=== PATIENT | female | born 1935 | race Caucasian/White ===

== ENCOUNTER → 2016-09-30 | Outpatient (CLI) | payer MEDICARE ==
[~2016-09-30] MED LIST: /CELE20CA OR; /CELE20CA PO; /FEXO18TA OR; /FEXO60TA; /ZOLP6ER; /ZOLP6ER OR; ADV250INH INH; ALBU17IN2 INH; AMBI5TAB PO; AMIT25TA2; AMOX500C OR; ANTIBIOTIC CREAM EXT; ARIM1TAB4 PO; ASCO25TA PO; ASPI81TA2 PO; ATEN100T; ATEN100T OR; BACT400T; BACT400T OR; BONI150T PO; BONIVA; BONIVA OR; BOSWPOW XX; CAFERGOT OR; CALC25TA PO; CALC600T9 PO; CETI10TA PO; CO Q10CA PO; CODE30SO OR; CODE30TA OR; CODE30TA3 PO; CRAN250C2 PO; DICL13PA TD; ESTR3TA; EXCETAB80 PO; FERR325T3 PO; FLECTOR1.3 EXT; FLEXERIL; FURO20TA2 PO; IBUPPOW25 PO; KEFLEX PO; LIDO5DIS EXT; MAGN250T2 PO; MORP-38 PO; MORPHINE IR PO; MS CONTIN PO; MULTLIQ7 PO; NITR3TA SL; NITR4TASL SL; OMEP40CA2 PO; PHEN 25 OR; PRIL20CA9 PO; PROAAER INH; PROV90AE; SERT100T OR; SING10TA31 OR; SKEL800T5; SKEL800T5 OR; SOMA350T; SOMA350T OR; SYNT150T OR; TRAM50TA2; TRAM50TA2 OR; TYLENOL #3 OR; VENTAER IN; VITA200C10 PO; VITAD1000T PO; VITAMIN D50000 UNT OR; VITATAB38 PO; VITATAB73 PO; ZOLO50TA; [UNRECOGNIZED DRUG - CODE] OR; [UNRECOGNIZED DRUG - OTHER] PO; boswellia PO; cytomel OR; tumeric PO
--- NOTE | 2016-10-10 23:34 | ECWPNPC ---
PATIENT NAME: JOCELYNN LEYVA : 1935 GENDER: FEMALE VISIT DATE: 09/30/2016 DISCHARGE DATE: 09/30/16 1545 VISIT LOCKED DATE TIME: PHYSICIAN: PARAMJIT ZAMORA RESOURCE: PARAMJIT ZAMORA HISTORY OF PRESENT ILLNESS HISTORY OF PRESENT ILLNESS: PAIN THE PATIENT DESCRIBES THE PAIN... THE PATIENT DESCRIBES THE PAIN... THE PATIENT DESCRIBES THE PAIN... THE PATIENT DESCRIBES THE PAIN... THE PATIENT DESCRIBES THE PAIN... CONTINUES W CHRONIC LBP DESCRIBED INTERMITTENT ACHING AND TENDER WITH PAIN VAS 5/10. DCS BATTERY NEEDS ADJUSTING. CURRENT MEDICINE: MS CONTIN 15MG TID , CELEBREX 200MG DAILY AND TYLENOL W CODEINE Q8H PRN.REPORTS MEDICATION IS HELPFUL AT REDUCING DAILY PAIN AND DENIES SIDE EFFECTS.STILL NEEDS TO TALK WITH Assignment Editor IN REGARDS TO DCS.CURRENTLY NOT USING [facility].SHE WILL BE MOVING TO [place] AT END OF THIS MONTH. FALL RISK SCREENING: SCREENING :NO FALLS IN THE PAST YEAR :NO FALLS IN THE PAST YEAR SCREENING :NO FALLS IN THE PAST YEAR :NO FALLS IN THE PAST YEAR CURRENT MEDICATIONS TAKING ZYRTEC 10 MG TABLET 1 TABLET NEEDED ORALLY ONCE A DAY TAKING NITROGLYCERIN 0.4 MG TABLET SUBLINGUAL SUBLINGUAL TAKING IRON SUPPLEMENT 325 (65 FE) MG TABLET 1 TABLET ORALLY BID TAKING SYNTHROID 175 MCG TABLET 1 TABLET EVERY MORNING ON AN EMPTY STOMACH ORALLY ONCE A DAY TAKING ATENOLOL 100 MG TABLET 1 TAB(S) ORALLY ONCE A DAY TAKING CYTOMEL 5 MCG TABLET 1 TABLET ORALLY ONCE A DAY TAKING ASPIR-81 81 MG TABLET DELAYED RELEASE 1 TABLET ORALLY ONCE A DAY TAKING OMEPRAZOLE 20MG 40 MG TABLET DIRECTED ORAL QD TAKING SERTRALINE HCL 100 MG TABLET 1 TABLET ORALLY TWICE A DAY TAKING ALEVE 220 MG TABLET 1 TABLET NEEDED ORALLY EVERY 12 HRS TAKING PROAIR HFA 108 (90 BASE) MCG/ACT AEROSOL SOLUTION 2 PUFFS NEEDED INHALATION EVERY 4 HRS TAKING DUONEB 0.5-2.5 (3) MG/3ML SOLUTION 3 ML INHALATION EVERY 4 HOURS NEEDED TAKING MULTIVITAL TABLET DIRECTED ORALLY DAILY TAKING VITAMIN C 500 MG TABLET CHEWABLE 1 TABLET ORALLY DAILY TAKING CALCIUM 600-200 MG-UNIT TABLET 1 TABLET WITH MEALS ORALLY ONCE A DAY TAKING TYLENOL WITH CODEINE #3 300-30 MG TABLET 1 TABLET NEEDED ORALLY EVERY 6 HRSMDD4, NOTES: 09/29/16 TAKING MORPHINE SULFATE ER 15 MG TABLET EXTENDED RELEASE 1 TABLET ORALLY Q8H PRN MDD3, NOTES: 09/29/16 NOT-TAKING BONIVA 150 MG TABLET 1 TABLET ORALLY NOT-TAKING AMBIEN 5 MG TABLET 1 TABLET AT BEDTIME ORALLY ONCE A DAY NEEDED NOT-TAKING ADVAIR DISKUS 250-50 MCG/DOSE AEROSOL POWDER BREATH ACTIVATED 1 PUFF INHALATION TWICE A DAY MEDICATION LIST REVIEWED AND RECONCILED WITH THE PATIENT PAST MEDICAL HISTORY HTN CHRONIC BACK PAIN POSTLAMINECTOMY SYNDROME SEES PAIN CLINIC AT [facility] ALLERGIES DEPRESSION OSTEOPOROSIS HX OF BCC ANEMIA WORKUP THE ENDOSCOPY AND COLONOSCOPY DONE ON 10/19/12 SHOWED DIVERTICULOSIS AND CHRONIC DUODENITIS ATROPHIC GASTRITIS ULCERATED GASTRIC POLYP ALLERGIES PROCARDIA: THROAT CLOSES: ALLERGY GABAPENTIN: HEADACHES: SIDE EFFECTS NITROFURANTOIN: NEUROPATHY: ALLERGY BACTRIM DS: DECREASED KIDNEY FUNCTION: ALLERGY LYRICA: HEADACHE: SIDE EFFECTS LATEX (FOR ALLERGY USE ONLY): RASH: ALLERGY REVIEW OF SYSTEMS CONSTITUTIONAL: ANY CHANGE IN YOUR MEDICAL CONDITION? NO . CHILLS NO . FEVER NO . INFECTION: DO YOU HAVE NEW INFECTIONS? NO . DO YOU HAVE HISTORY OF MRSA? NO . MUSCULOSKELETAL: ANY NEW PATTERNS OF PAIN OR NUMBNESS? NO . GASTROENTEROLOGY: ANY NEW CHANGE IN BOWEL CONTROL? NO . GENITOURINARY: ANY NEW CHANGE IN BLADDER CONTROL? NO . IS THERE A CHANCE YOU COULD BE ? NO . HEMATOLOGY/LYMPH: DO YOU TAKE ANY BLOOD THINNERS? (FOR EXAMPLE- COUMADIN, PLAVIX, AGGRENOX, PLATEL, PRADAXA, OR XARELTO) NO . WHEN WAS YOUR LAST DOSE? DATE: TIME: . NEUROLOGY: HAVE YOU FALLEN IN THE PAST 6 MONTHS? NO . ANY NEW EXTREMITY NUMBNESS OR WEAKNESS? NO . CARDIOLOGY: DO YOU HAVE A PACEMAKER OR DEFIBRILLATOR? NO . RESPIRATORY: HAVE YOU BEEN SICK IN THE PAST WEEK? NO . FEVER NO . FLU LIKE SYMPTOMS? NO . COUGH NO . INTEGUMENTARY: DO YOU HAVE ANY RASHES OR OPEN SORES? NO . ALLERGIC/IMMUNO: ARE YOU ALLERGIC TO SHELLFISH OR IV DYE? NO . ANY NEW ALLERGIES? NO . PSYCHIATRIC: DO YOU HAVE THOUGHTS OF HURTING YOURSELF OR SOMEONE ELSE? NO . ARE YOU ABUSED, NEGLECTED, OR IN AN UNSAFE ENVIRONMENT? NO . ENDOCRINOLOGY: ARE YOU DIABETIC? NO . OTHER: DO YOU NEED ANY PRESCRIPTIONS? YES . IF YES, PLEASE LIST: TYLENOL/CODEINE AND MORPHINE . ANY NEW PROBLEMS WITH YOUR MEDICATIONS? NO . WHEN DID YOU LAST EAT? ____ . WHEN DID YOU LAST DRINK? ____ . WHAT DID YOU LAST DRINK? ____ . NAME OF PERSON DRIVING YOU HOME? ____ . DO YOU HAVE ANY OTHER QUESTIONS OR CONCERNS NO . REVIEWED BY: PROVIDER: PARAMJIT MILLER . VITAL SIGNS WT 208 LBS, HT 64.5 IN, BMI 35.15 INDEX, BP 149/70 MM HG, HR 72 /MIN, RR 16 /MIN, TEMP 98.0 F, OXYGEN SAT % 93, NA INITIALS AW 1504, REVIEWED BY: CS. EXAMINATION GENERAL EXAMINATION: LUNGS:LUNG SOUNDS ARE CLEAR. HEART:HEART RATE REGULAR. MUSCULOSKELETAL:*, MUSCLE STRENGTH TESTING 5/5 BILATERAL, PALPATION: POSITIVE FOR PAIN OVER L/S SPINE. POSITIVE FOR PAIN OVER L/S PARSPINALS. ASSESSMENTS POST LAMINECTOMY SYNDROME - M96.1 (PRIMARY) CHRONIC PRESCRIPTION OPIATE USE - Z79.891 TREATMENT POST LAMINECTOMY SYNDROME DECREASE MORPHINE SULFATE ER TABLET EXTENDED RELEASE, 15 MG, 1 TABLET, ORALLY, BID MDD2 THREE MOS. SUPPLY CAT D CHRONIC PAIN, 90 DAYS, 180, REFILLS 0, NOTES: 09/29/16 REFILL TYLENOL WITH CODEINE #3 TABLET, 300-30 MG, 1 TABLET NEEDED, ORALLY, EVERY 6 HRSMDD4 3MOS SUPPLY CAT D CHRONIC PAIN, 90 DAYS, 360, REFILLS 0, NOTES: 09/29/16 PROCEDURE CODES FA211 ESTABILISHED PATIENT [facility] CHARGE G8730 PAIN ASSESS POS TOOL F/U PLAN DOC G8427 DOC MEDS VERIFIED W/PT OR RE DISPOSITION & COMMUNICATION FOLLOW UP PT MOVING ELECTRONICALLY SIGNED BY PAUL LANDEROS ON 10/10/2016 AT 05:39 PM EDT DISCLAIMER : THIS IS A VISIT SUMMARY EXTRACTED FROM THE [employer] CHART. IT IS NOT A COPY OF THE [employer] PROGRESS NOTE. MTDD
== END ==
LOC: M PAIN 14:40
PROVIDERS: ATTEND Nurse Practitioner Family
DX: G89.29 Other chronic pain (principal); M96.1 Postlaminectomy syndrome, not elsewhere classified; I10 Essential (primary) hypertension; J30.9 Allergic rhinitis, unspecified; F32.9 Major depressive disorder, single episode, unspecified; M81.0 Age-related osteoporosis without current pathological fracture; Z85.828 Personal history of other malignant neoplasm of skin; Z79.891 Long term (current) use of opiate analgesic; Z79.82 Long term (current) use of aspirin; Z88.1 Allergy status to other antibiotic agents; Z88.8 Allergy status to other drugs, medicaments and biological substances; Z91.040 Latex allergy status; Z79.899 Other long term (current) drug therapy